=== PATIENT | male | born 1960 ===

== ENCOUNTER 2018-10-24 19:51 | Emergency (ER) | payer MEDICARE ==
[2018-10-24] MEDS ORDERED: Diazepam TAB(*) 5 MG PO ONE (21:14)
[2018-10-24] MEDS ORDERED: Ketorolac INJ* 30 MG/ML 1 ML VIAL IM ONE (21:14)
--- NOTE | 2018-10-24 21:16 | ED ---
Adult Trauma - HPI Summary HPI Summary: Patient complains of bilateral low back pain after mechanical fall tonight when he slipped on walnuts. Patient states he fell backward and hit his head on the stone patio. Denies LOC, ZAVALA, vision change, N/3, imbalance, dizziness. Denies change in urine or BM. Denies medical history other than chronic back pain. No anti-coag. - History of Current Complaint Chief Complaint: EDFall Stated Complaint: FALL PER PT Time Seen by Provider: 10/24/18 21:08 Hx Obtained From: Patient Mechanism of Injury: Fall Ambulatory at the Scene: Yes Loss of Consciousness: no loss of consciousness Onset of Pain: Immediate Onset Severity: Severe Current Severity: Severe Pain Intensity: 9 Pain Scale Used: 0-10 Numeric Location: Back Character: Aching, Stabbing Aggravating Factor(s): Movement, Palpation Alleviating Factor(s): Rest Associated Signs & Symptoms: Positive: Negative - Allergy/Home Medications Allergies/Adverse Reactions: Allergies Allergy/AdvReac Type Severity Reaction Status Date / Time bee pollen Allergy Edema Verified 04/15/18 09:28 bee venom protein (honey bee) Allergy Edema Verified 04/15/18 09:28 divalproex sodium Allergy Hives Verified 04/15/18 09:28 [From Depakote] Home Medications: Home Medications HYDROcodone/ACETAMIN 5-325 MG* [Mouthcard 5-325 TAB*] 1 tab PO BID PRN 10/24/18 [ History Confirmed 10/24/18] PMH/Surg Hx/FS Hx/Imm Hx Endocrine/Hematology History: Denies: Hx Diabetes Cardiovascular History: Denies: Hx Hypertension, Hx Pacemaker/ICD History: Denies: Hx Renal Disease Sensory History: Denies: Hx Hearing Aid Opthamlomology History: Denies: Hx Legally Blind EENT History: Denies: Hx Deafness Neurological History: Denies: Hx Dementia Psychiatric History: Denies: Hx Panic Disorder Infectious Disease History: No Infectious Disease History: Denies: Traveled Outside the [place] in Last 30 Days - Family History Known Family History: Positive: Non-Contributory - Social History Alcohol Use: None Substance Use Type: Reports: None Smoking Status (MU): Light Every Day Tobacco Smoker Review of Systems Constitutional: Negative Eyes: Negative ENT: Negative Cardiovascular: Negative Respiratory: Negative Gastrointestinal: Negative Genitourinary: Negative Musculoskeletal: Other Skin: Negative Neurological: Negative Psychological: Normal All Other Systems Reviewed And Are Negative: Yes Physical Exam - Summary Physical Exam Summary: Pain with palpation of paraspinal muscles of the lumbar spine. Mild bony point tenderness. Exam of back otherwise unremarkable. Normal neuro exam. Very mild hematoma to posterior head. No evidence of wound. Full range of motion of neck and jaw. No evidence of oral trauma or facial trauma. No pain with palpation of chest wall or abdomen. Patient moves bilateral upper extremities freely. Moves bilateral lower extremities with some pain and lower back. Triage Information Reviewed: Yes Vital Signs On Initial Exam: Initial Vitals Temp Pulse Resp BP Pulse Ox 99 F 75 18 115/79 96 10/24/18 20:01 10/24/18 20:01 10/24/18 20:01 10/24/18 20:01 10/24/18 20:01 Vital Signs Reviewed: Yes Appearance: Positive: Well-Appearing Skin: Positive: Warm Head/Face: Positive: Normal Head/Face Inspection Eyes: Positive: Normal ENT: Positive: Normal ENT inspection Dental: Negative: Dental Fracture @, Bleeding Neck: Positive: Supple Respiratory/Lung Sounds: Positive: Clear to Auscultation Cardiovascular: Positive: Normal Abdomen Description: Positive: Nontender Musculoskeletal: Positive: Normal Neurological: Positive: Normal Psychiatric: Positive: Normal AVPU Assessment: Alert - Yvon Coma Scale Best Eye Response: 4 - Spontaneous Best Motor Response: 6 - Obeys Commands Best Verbal Response: 5 - Oriented Coma Scale Total: 15 Diagnostics - Vital Signs Vital Signs Temp Pulse Resp BP Pulse Ox 10/24/18 20:01 99 F 75 18 115/79 96 - Laboratory Lab Statement: Any lab studies that have been ordered have been reviewed, and results considered in the medical decision making process. Adult Trauma Course/Dx - Course Course Of Treatment: Patient complains of bilateral low back pain after mechanical fall tonight when he slipped on [email or web address]. Patient states he fell backward and hit his head on the stone patio. Denies LOC, ZAVALA, vision change, N/ 3, imbalance, dizziness. Denies change in urine or BM. Denies medical history other than chronic back pain. No anti-coag. Vital signs within normal limits. X-ray lumbar spine negative. Symptoms improved with Toradol 30 mg IM and Valium 5 mg. Rx for Flexeril. - Diagnoses Provider Diagnoses: Fall, Muscle spasm Discharge ED - Sign-Out/Discharge Documenting (check all that apply): Patient Departure Patient Received Moderate/Deep Sedation with Procedure: No - Discharge Plan Condition: Stable Disposition: HOME Prescriptions: Cyclobenzaprine TAB* [Flexeril 10 MG TAB*] 10 mg PO TID PRN 5 Days #15 tab PRN Reason: Spasms Patient Education Materials: Muscle Spasm (ED) Referrals: Tray Cabrales MD [Primary Care Provider] - Additional Instructions: Take ibuprofen 600 mg every 6 hours for pain. Take Flexeril as directed for muscle spasm. Follow-up with primary care. - Billing Disposition and Condition Condition: STABLE Disposition: Home - Attestation Statements Provider Attestation: I was available for consult. This patient was seen by the [facility]. The patient was not presented to, seen by, or examined by me. Felice Stanley MD
[2018-10-24] MEDS ORDERED: Lidocaine PATCH 5%* 1 PATCH TRANSDERM SCH (22:00)
[2018-10-24 22:08] VITALS: BP 135/90
[2018-10-25] MEDS ORDERED: Lidocaine Patch REMOVE* 1 NOTE MISC PATCH OFF SCH (03:00)
== END 2018-10-24 22:07 | disposition home or self-care (01) ==
LOC: ED 19:51
DX: M62.838 Other muscle spasm (principal); W01.0XXA Fall on same level from slipping, tripping and stumbling without subsequent striking against object, initial encounter; Y92.9 Unspecified place or not applicable; F17.200 Nicotine dependence, unspecified, uncomplicated; Z88.8 Allergy status to other drugs, medicaments and biological substances
CPT/HCPCS: 72110; 96372; 99282; A9270-GY; J1885